=== PATIENT | male | born 1980 | race Caucasian/White ===

== ENCOUNTER 2020-12-10 09:17 | Emergency (ER) | payer BC ==
[2020-12-10] MEDS ORDERED: Sodium Chloride 0.9% 1000 ML 1,000 ML IV STA (09:25)
[2020-12-10] MEDS ORDERED: Zofran 4 MG/2 ML VIAL IV ONE (09:25)
[2020-12-10] MEDS ORDERED: MORPHINE SULFATE 4 MG INJ IV ONE ×2 (09:25→11:23)
[2020-12-10] MEDS ORDERED: TORAdol 30 mg Injection IV ONE (09:25)
[2020-12-10] MEDS ORDERED: TORAdol 30 mg Injection ONE (09:27)
[2020-12-10] MEDS ORDERED: Zofran 4 MG/2 ML VIAL ONE (09:27)
[2020-12-10] MEDS ORDERED: Sodium Chloride 0.9% 1000 ML 1,000 ML ONE (09:28)
[2020-12-10] MEDS ORDERED: MORPHINE SULFATE 4 MG INJ ONE ×2 (09:28→11:23)
[2020-12-10] MEDS ORDERED: Flomax 0.4 MG PO STA (09:29)
[2020-12-10 09:40] LABS: Absolute Neutrophil Ct (ANC) 8.28 (1.4-6.9); BASOPHIL % 0.3 % (0.0-0.4); Basophil (Absolute #) 0.03 (0-0.4); Eosinophil % 0.8 % (0.00-5.0); Eosinophil (Absolute #) 0.09 (0-0.5); Hematocrit 40.8 % (42-50); Hemoglobin 13.5 gm/dl (12.5-18.0); Lymphocyte (Absolute #) 2.39 (1.0-4.6); Lymphocytes % 20.9 % (24.0-44.0); Mean Cell Volume 92.9 fl (78-100); Mean Corpuscular Hemoglobin 30.8 pg (26-32); Mean Corpuscular Hgb Concent. 33.1 g/dl (32-36); Mean Platelet Volume 9.8 fl (7.5-11.0); Monocyte (Absolute #) 0.65 (0.0-1.3); Monocytes % 5.7 % (0.0-12.0); Neutrophil % 72.3 % (36.0-66.0); Platelet Count 276 K/mm3 (150-450); Red Blood Count 4.39 M/mm3 (4.1-5.6); Red Cell Distribution Width 13.3 % (11.5-14.0); White Blood Count 11.4 K/mm3 (4.0-10.5)
[2020-12-10] MEDS ORDERED: Flomax 0.4 MG ONE (09:40)
[2020-12-10 09:55] LABS: ALBUMIN 4.6 g/dL (3.5-5.0); ALKALINE PHOSPHATASE 72 U/L (38-126); ANION GAP 16.3 MEQ/L (5-15); BLOOD UREA NITROGEN 16 mg/dL (9-20); CHLORIDE 104 mmol/L (98-107); Calcium 9.3 mg/dL (8.4-10.2); Carbon Dioxide 23 mmol/L (22-30); Creatinine 1 1.03 mg/dL (0.66-1.25); EST GLOMERULAR FILTRATION RATE > 60.0 ML/MIN; Glucose 145 mg/dL (74-106); LIPASE 75 U/L (23-300); Potassium 3.9 mmol/L (3.5-5.1); SGOT/AST 38 U/L (17-59); SGPT/ALT 32 U/L (0-50); SODIUM 140 mmol/L (137-145); Total Protein 7.3 g/dL (6.3-8.2)
[2020-12-10 11:27] LABS: Appearance CLEAR (CLEAR); Bilirubin NEGATIVE (NEGATIVE); Blood MODERATE Ery/ul (0-5); Glucose NEGATIVE (NEGATIVE); Ketones NEGATIVE (NEGATIVE); Leukocyte Esterase NEGATIVE (NEGATIVE); Mucus SLIGHT /HPF (NEGATIVE); Nitrite NEGATIVE (NEGATIVE); Protein,Urine Dip NEGATIVE (Negative); RBC 0-2 /HPF (0-2); Specific Gravity 1.015 (1.005-1.025); Urobilinogen NEGATIVE mg/dL (0-1); WBC 0-2 /HPF (0-5)
--- NOTE | 2020-12-10 11:47 | ERPHSYRPT ---
- History of Present Illness Time Seen by Provider: 12/10/20 09:25 Historian: patient Exam Limitations: no limitations Patient Subjective Stated Complaint: Right sided flank pain Triage Nursing Assessment: Patient ambulated back to ED. Patient unable to sit or lie. Patient complains of right lower flank pain that started at 0530 this am. Patient states pain is 10/10 constant sharp pain. Patient states he is having a hard time urinating. Patient has hx of kidney stones. Physician History: 40-year-old male with a history of kidney stones presented in the ER with sudden onset right flank pain around 5:30 AM today, constant, severe sharp radiating to left groin, aggravated with activity, palpation and is unable to find any comfortable position. Denies associated hematuria, vomiting but does have some nausea. No fever or chills reported. Timing/Duration: today, constant, sudden, worse Activities at Onset: rest, sleep Quality: sharpness Abdominal Pain Onset Location: flank Pain Radiation: groin Severity of Pain-Max: severe Severity of Pain-Current: severe Modifying Factors: Worsens With: movement, palpation, position Associated Symptoms: nausea Previous symptoms: same symptoms as today Allergies/Adverse Reactions: No Known Drug Allergies Allergy (Verified 12/10/20 09:20) Hx Tetanus, Diphtheria Vaccination/Date Given: Yes Hx Influenza Vaccination/Date Given: No Hx Pneumococcal Vaccination/Date Given: No Immunizations Up to Date: Yes Travel Risk - International Travel Have you traveled outside of the country in past 3 weeks: No - Coronavirus Screening Are you exhibiting any of the following symptoms?: No Close contact with a COVID-19 positive Pt in past 14-21 Days: No - Vaccine Status Have you recieved a Covid-19 vaccination: Yes Forming Acid Dumper: Moderna - Vaccination Dates Date of 2cond Vaccination (if applicable): Apr 2020 - Review of Systems Constitutional: No Symptoms Eyes: No Symptoms Ears, Nose, & Throat: No Symptoms Respiratory: No Symptoms Cardiac: No Symptoms Abdominal/Gastrointestinal: Abdominal Pain, Nausea Genitourinary Symptoms: Flank Pain Musculoskeletal: No Symptoms Skin: No Symptoms Neurological: No Symptoms Psychological: No Symptoms Hematologic/Lymphatic: No Symptoms Immunological/Allergic: No Symptoms - Past Medical History Pertinent Past Medical History: Yes Neurological History: No Pertinent History ENT History: No Pertinent History Cardiac History: No Pertinent History Respiratory History: No Pertinent History Endocrine Medical History: No Pertinent History Musculoskeletal History: No Pertinent History GI Medical History: No Pertinent History History: Other Psycho-Social History: No Pertinent History Male Reproductive Disorders: No Pertinent History Other Medical History: seasonal allergies - Past Surgical History Past Surgical History: No - Social History Smoking Status: Never smoker Exposure to second hand smoke: No Drug Use: none Patient Lives Alone: No Significant Family History: no pertinent family hx - Nursing Vital Signs Nursing Vital Signs: Initial Vital Signs Temperature 97.9 F 12/10/20 09:23 Pulse Rate 71 12/10/20 09:23 Respiratory Rate 18 12/10/20 09:23 Blood Pressure 143/92 12/10/20 09:23 O2 Sat by Pulse Oximetry 96 12/10/20 09:23 Pain Scale Pain Intensity 8 - Physical Exam General Appearance: no apparent distress, alert Eye Exam: PERRL/EOMI, eyes nml inspection Ears, Nose, Throat Exam: normal ENT inspection, pharynx normal Neck Exam: normal inspection, supple, full range of motion Respiratory Exam: normal breath sounds, lungs clear Cardiovascular Exam: regular rate/rhythm, normal heart sounds Gastrointestinal/Abdomen Exam: soft, normal bowel sounds, tenderness (Right flank/right lower quadrant with positive CVA tenderness on the right.) Male Genitalia Exam: normal genitalia Back Exam: normal inspection, normal range of motion, CVA tenderness Extremity Exam: normal inspection, normal range of motion, pelvis stable Neurologic Exam: alert, oriented x 3, cooperative Skin Exam: normal color SpO2 Interpretation: normal SpO2: 96 O2 Delivery: Room Air Ordered Tests: Active Orders 24 hr Category Date Time Status IV Insertion STAT Care 12/10/20 09:25 Active NPO (ED) STAT Care 12/10/20 09:25 Active ABDOMEN AND PELVIS W/0 CONTRAS [CT] Stat Exams 12/10/20 09:28 Taken CBC W DIFF Stat Lab 12/10/20 09:35 Completed CMP Stat Lab 12/10/20 09:35 Completed LIPASE Stat Lab 12/10/20 09:35 Completed UA W/RFX UR CULTURE Stat Lab 12/10/20 11:04 Completed Medication Summary Discontinued Medications Generic Name Dose Route Start Last Admin Trade Name Freq PRN Reason Stop Dose Admin Sodium Chloride 1,000 mls @ 999 mls/hr 12/10/20 09:25 12/10/20 10:47 Sodium Chloride 0.9% 1000 Ml IV 12/10/20 10:25 Infused .Q1H1M STA Infusion Sodium Chloride Confirm 12/10/20 09:28 Sodium Chloride 0.9% 1000 Ml Administered 12/10/20 09:29 Dose 1,000 mls @ ud .ROUTE .STK-MED ONE Ketorolac Tromethamine Confirm 12/10/20 09:27 Toradol 30 Mg Injection Administered 12/10/20 09:28 Dose 30 mg .ROUTE .STK-MED ONE Ketorolac Tromethamine 30 mg 12/10/20 09:25 12/10/20 09:39 Toradol 30 Mg Injection IV 12/10/20 09:26 30 mg STAT ONE Administration Morphine Sulfate 4 mg 12/10/20 09:25 12/10/20 09:40 Morphine Sulfate 4 Mg Inj IV 12/10/20 09:26 4 mg STAT ONE Administration Morphine Sulfate Confirm 12/10/20 09:28 Morphine Sulfate 4 Mg Inj Administered 12/10/20 09:29 Dose 4 mg .ROUTE .STK-MED ONE Morphine Sulfate 4 mg 12/10/20 11:23 12/10/20 11:25 Morphine Sulfate 4 Mg Inj IV 12/10/20 11:24 4 mg STAT ONE Administration Morphine Sulfate Confirm 12/10/20 11:23 Morphine Sulfate 4 Mg Inj Administered 12/10/20 11:24 Dose 4 mg .ROUTE .STK-MED ONE Ondansetron HCl 4 mg 12/10/20 09:25 12/10/20 09:39 Zofran 4 Mg/2 Ml Vial IV 12/10/20 09:26 4 mg STAT ONE Administration Ondansetron HCl Confirm 12/10/20 09:27 Zofran 4 Mg/2 Ml Vial Administered 12/10/20 09:28 Dose 4 mg .ROUTE .STK-MED ONE Tamsulosin HCl 0.8 mg 12/10/20 09:29 12/10/20 09:42 Flomax 0.4 Mg PO 12/10/20 09:30 0.8 mg ONCE STA Administration Tamsulosin HCl Confirm 12/10/20 09:40 Flomax 0.4 Mg Administered 12/10/20 09:41 Dose 0.8 mg .ROUTE .STK-MED ONE Lab/Rad Data: Laboratory Result Diagrams 12/10/20 09:35 12/10/20 09:35 Laboratory Results 12/10/20 12/10/20 12/10/20 Range/Units 11:04 09:35 09:35 WBC 11.4 H (4.0-10.5) K/mm3 RBC 4.39 (4.1-5.6) M/mm3 Hgb 13.5 (12.5-18.0) gm/dl Hct 40.8 L (42-50) % MCV 92.9 (78-100) fl MCH 30.8 (26-32) pg MCHC 33.1 (32-36) g/dl RDW 13.3 (11.5-14.0) % Plt Count 276 (150-450) K/mm3 MPV 9.8 (7.5-11.0) fl Gran % 72.3 H (36.0-66.0) % Eos # (Auto) 0.09 (0-0.5) Absolute Lymphs (auto) 2.39 (1.0-4.6) Absolute Monos (auto) 0.65 (0.0-1.3) Lymphocytes % 20.9 L (24.0-44.0) % Monocytes % 5.7 (0.0-12.0) % Eosinophils % 0.8 (0.00-5.0) % Basophils % 0.3 (0.0-0.4) % Absolute Granulocytes 8.28 H (1.4-6.9) Basophils # 0.03 (0-0.4) Sodium 140 (137-145) mmol/L Potassium 3.9 (3.5-5.1) mmol/L Chloride 104 (98-107) mmol/L Carbon Dioxide 23 (22-30) mmol/L Anion Gap 16.3 H (5-15) MEQ/L BUN 16 (9-20) mg/dL Creatinine 1.03 (0.66-1.25) mg/dL Estimated GFR > 60.0 ML/MIN Glucose 145 H (74-106) mg/dL Calcium 9.3 (8.4-10.2) mg/dL Total Bilirubin 0.80 (0.2-1.3) mg/dL AST 38 (17-59) U/L ALT 32 (0-50) U/L Alkaline Phosphatase 72 (38-126) U/L Serum Total Protein 7.3 (6.3-8.2) g/dL Albumin 4.6 (3.5-5.0) g/dL Lipase 75 (23-300) U/L Urine Color YELLOW (YELLOW) Urine Appearance CLEAR (CLEAR) Urine pH 5.0 (5-6) Ur Specific [place] 1.015 (1.005-1.025) Urine Protein NEGATIVE (Negative) Urine Ketones NEGATIVE (NEGATIVE) Urine Blood MODERATE (0-5) Adalid/ul Urine Nitrite NEGATIVE (NEGATIVE) Urine Bilirubin NEGATIVE (NEGATIVE) Urine Urobilinogen NEGATIVE (0-1) mg/dL Ur Leukocyte Esterase NEGATIVE (NEGATIVE) Urine WBC (Auto) 0-2 (0-5) /HPF Urine RBC (Auto) 0-2 (0-2) /HPF U Epithel Cells (Auto) NONE (FEW) /HPF Urine Bacteria (Auto) NONE (NEGATIVE) /HPF Urine Mucus (Auto) SLIGHT (NEGATIVE) /HPF Urine Culture Reflexed NO (NO) Urine Glucose NEGATIVE (NEGATIVE) mg/dL - Progress Progress: improved Progress Note: 12/10/20 11:45 40-year-old is evaluated for right flank pain. He is given fluid bolus along with pain medications and Flomax, on reevaluation feeling better. Has white count of 11, grossly unremarkable chemistries and stable renal functions with no UTI. CT showed bilateral nonobstructing kidney stones and 2-3 mm right ureteral stone without any obstruction. I believe patient would be able to pass the stone on his own, will give him pain medication, Flomax and recommended ou tpatient urology follow-up for further evaluation. Discussed signs symptoms of worsening needing return to ER which he seems understanding. Counseled pt/family regarding: lab results, diagnosis, rad results - Departure Departure Disposition: Home Clinical Impression: Ureterolithiasis Condition: Stable Critical Care Time: No Referrals: CARROLL HIGGINBOTHAM FNP [Primary Care Provider] - Follow Up with PCP/3 days NESTOR JUAREZ [COURTESY STAFF] - (Call in 2 days for reevaluation) Instructions: Kidney Stones (DC), Flank Pain Additional Instructions: Take pain medications as needed. Drink plenty of fluids. Continue with Flomax. Follow-up with primary care and urology for reevaluation. Return to ER for intractable pain, difficulty urination, intractable vomiting, persistent fever chills etc. Prescriptions: Hydrocodone/Acetaminophen [Hydrocodone-Acetamin 7.5-325] 1 each PO Q6HPRN PRN 3 Days #12 tablet MDD 4 PRN Reason: Pain Tamsulosin HCl 0.4 mg [Flomax 0.4 MG] 0.4 mg PO DAILY #30 cap
[2020-12-10 12:05] VITALS: BP 159/98; PULSE 59; O2SAT 98
--- NOTE | 2020-12-10 22:08 | XRAY ---
Indication: Right inguinal/flank pain. History kidney stones. Multiple contiguous axial images obtained through the abdomen and pelvis without contrast using renal stone protocol. Comparison: May 16, 2012. Lung bases are clear with incidental inferior right middle lobe calcified granuloma. Heart is not enlarged. New 2-3 mm right UVJ calculus with proximal ureter minimally distended and mild hydronephrosis consistent with partial obstructive uropathy. Additional bilateral renal micro-calculi, largest on left measuring 677 mm. Noncontrasted stomach and bowel loops are nonobstructed. Normal appendix. No free fluid/air. Remaining liver, gallbladder, pancreas, spleen, adrenal glands, kidneys, ureters, bladder, and aorta are unremarkable for noncontrast exam. Osseous structures intact. Impression: 1. New 2-3 mm right UVJ calculus producing partial obstruction as detailed. Additional bilateral renal micro-calculi. 2. Right middle lobe calcified granuloma. 3. Remaining CT abdomen/pelvis without contrast exam is negative. Comment: Preliminary interpretation made by [facility]. No critical discrepancy.
== END 2020-12-10 12:07 | disposition home or self-care (01) ==
LOC: ED 09:17
DX: N20.1 Calculus of ureter (principal); R11.0 Nausea; R10.9 Unspecified abdominal pain
CPT/HCPCS: 36000; 36415; 74176; 80053; 81001; 83690; 85025; 96360; 96374; 96375; 96376; 99284; J1885; J2270; J2405; A9270-GY

== ENCOUNTER 2024-11-30 15:48 | Emergency (ER) | payer BC ==
[2024-11-30 16:01] VITALS: TEMP 97.5; O2SAT 96
--- NOTE | 2024-11-30 16:19 | ERPHSYRPT ---
- History of Present Illness Time Seen by Provider: 11/30/24 16:07 Source: patient Exam Limitations: no limitations Patient Subjective Stated Complaint: pt has right flank pain Triage Nursing Assessment: Pt brought to the ER by his , hypertensive, rates pain as 6/10, pulses normal, skin n/w/d, hx of kidney stones, denies chest pain, no difficulty breathing, doesn't appear to be in any distress Physician History: Patient is here with right sided flank pain, 6 out of 10, started just prior to arrival. Patient states he was walking out of work to his car. 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 No falls or trauma. Patient does have a history of kidney stones. States he has not had any since 2020. Patient is taking PO well. Same number of urinations and defecations. The patient has no signs of altered mental status, nuchal rigidity, signs of meningitis. The patient is up-to-date on all vaccinations. Allergies/Adverse Reactions: No Known Drug Allergies Allergy (Verified 11/30/24 16:02) Hx Tetanus, Diphtheria Vaccination/Date Given: Yes Hx Influenza Vaccination/Date Given: No Hx Pneumococcal Vaccination/Date Given: No Travel Risk - International Travel Have you traveled outside of the country in past 3 weeks: No - Emerging Infectious Disease Are you exhibiting symptoms associated with any current EIDs: No - Past Medical History Pertinent Past Medical History: Yes Neurological History: No Pertinent History ENT History: No Pertinent History Cardiac History: No Pertinent History Respiratory History: No Pertinent History Endocrine Medical History: No Pertinent History Musculoskeletal History: Other GI Medical History: No Pertinent History History: Other Psycho-Social History: No Pertinent History Male Reproductive Disorders: No Pertinent History Other Medical History: L RC repair - Past Surgical History Past Surgical History: Yes Musculoskeletal: Orthopedic Surgery Other Surgical History: lt shoulder rotator cuff Significant Family History: no pertinent family hx - Social History Smoking Status: Never smoker Exposure to second hand smoke: No Drug Use: none - Social Determinants of Health Will the patient participate in the screening: Yes Do you worry about a steady place to live?: No Do you have any problems with any of the following?: No known problems In the past 12 months,have you had to go without utilities?: No Transportation Issues: No Has anyone in your support network made you feel unsafe?: No Have you or anyone in your house had to go w/o enough food: No - Nursing Vital Signs Nursing Vital Signs: Initial Vital Signs Temperature 97.5 F 11/30/24 15:55 Pulse Rate 74 11/30/24 15:55 Blood Pressure 175/83 11/30/24 15:55 O2 Sat by Pulse Oximetry 96 11/30/24 15:55 Pain Scale Pain Intensity 3 - Physical Exam SpO2 Interpretation: normal SpO2: 96 Comments: 11/30/24 16:18 Review of Systems Constitutional: Negative for fever. HENT: Negative for congestion. Respiratory: Negative for shortness of breath. Cardiovascular: Negative for chest pain. Gastrointestinal: Negative for abdominal pain. Genitourinary: Negative for dysuria. Musculoskeletal: Right flank pain Skin: Negative for rash. Neurological: Negative for headaches. Psychiatric/Behavioral: Negative for behavioral problems. All other systems reviewed and are negative. Physical Exam Vitals signs and nursing note reviewed. Constitutional: Appearance: Patient is well-developed. HENT: Head: Normocephalic and atraumatic. Eyes: Conjunctiva/sclera: Conjunctivae normal. Neck: Musculoskeletal: Normal range of motion. Trachea: No tracheal deviation. Cardiovascular: Rate and Rhythm: Normal rate. Heart sounds normal. Pulmonary: Effort: Pulmonary effort is normal. No respiratory distress. Abdominal: Palpations: Abdomen is soft. Musculoskeletal: General: No deformity. Right flank tenderness Skin: General: Skin is warm and dry. Neurological/ Psychiatric: Mental Status: Mental status, behavior, interaction with environment is appropriate for patient's age and condition Ordered Tests: Active Orders 24 hr Category Date Time Status IV Insertion STAT Care 11/30/24 16:13 Active ABDOMEN AND PELVIS W/0 CONTRAS [CT] Stat Exams 11/30/24 16:22 Completed CBC W DIFF Stat Lab 11/30/24 16:30 Completed CMP Stat Lab 11/30/24 16:30 Completed CULTURE,URINE Stat Lab 11/30/24 18:00 Received LIPASE Stat Lab 11/30/24 16:30 Completed UA W/RFX UR CULTURE Stat Lab 11/30/24 18:00 Completed Medication Summary Discontinued Medications Generic Name Dose Route Start Last Admin Trade Name Freq PRN Reason Stop Dose Admin Hydromorphone HCl 1 mg 11/30/24 16:13 11/30/24 16:43 Hydromorphone 1 Mg/1ml Inj IV 11/30/24 16:14 1 mg STAT ONE Administration Hydromorphone HCl Confirm 11/30/24 16:41 Hydromorphone 1 Mg/1ml Inj Administered 11/30/24 16:42 Dose 1 mg .ROUTE .STK-MED ONE Sodium Chloride 1,000 mls @ 999 mls/hr 11/30/24 16:13 11/30/24 17:51 Sodium Chloride 0.9% 1000 Ml IV 11/30/24 17:13 Infused .Q1H1M STA Infusion Sodium Chloride Confirm 11/30/24 16:41 Sodium Chloride 0.9% 1000 Ml Administered 11/30/24 16:42 Dose 1,000 mls @ ud .ROUTE .STK-MED ONE Ketorolac Tromethamine 30 mg 11/30/24 16:13 11/30/24 16:43 Ketorolac Tromethamine 30 Mg/Ml Inj IV 11/30/24 16:14 30 mg STAT ONE Administration Ketorolac Tromethamine Confirm 11/30/24 16:41 Ketorolac Tromethamine 30 Mg/Ml Inj Administered 11/30/24 16:42 Dose 30 mg .ROUTE .STK-MED ONE Ondansetron HCl 8 mg 11/30/24 16:13 11/30/24 16:43 Ondansetron Hcl 4 Mg/2 Ml Vial IV 11/30/24 16:14 8 mg STAT ONE Administration Ondansetron HCl Confirm 11/30/24 16:41 Ondansetron Hcl 4 Mg/2 Ml Vial Administered 11/30/24 16:42 Dose 4 mg .ROUTE .STK-MED ONE Ondansetron HCl Confirm 11/30/24 16:44 Ondansetron Hcl 4 Mg/2 Ml Vial Administered 11/30/24 16:45 Dose 4 mg .ROUTE .STK-MED ONE Lab/Rad Data: Laboratory Result Diagrams 11/30/24 16:30 11/30/24 16:30 Laboratory Results 11/30/24 11/30/24 11/30/24 Range/Units 18:00 16:30 16:30 WBC 11.0 H (4.23-9.07) x10^3/uL RBC 4.60 L (4.63-6.08) x10^6/uL Hgb 14.2 (13.7-17.5) g/dL Hct 41.5 (40.1-51.0) % MCV 90.2 (79.0-92.2) fL MCH 30.9 (25.7-32.2) pg MCHC 34.2 (32.3-36.5) g/dL RDW 12.4 (11.6-14.4) % Plt Count 261 (163-337) x10^3/uL MPV 9.4 (9.4-12.4) fL Gran % 71.3 H (34.0-67.9) % Immature Gran % (Auto) 0.4 (0.001-0.429) % Nucleat RBC Rel Count 0.0 (0.00-0.2) % Eos # (Auto) 0.07 (0.04-0.54) x10^3/uL Immature Gran # (Auto) 0.04 H (0.001-0.031) x10^3u/L Absolute Lymphs (auto) 2.16 (1.32-3.57) x10^3/uL Absolute Monos (auto) 0.82 (0.30-0.82) x10^3/uL Absolute Nucleated RBC 0.00 (0.00-0.012) x10^3u/L Lymphocytes % 19.7 L (21.8-53.1) % Monocytes % 7.5 (5.3-12.2) % Eosinophils % 0.6 L (0.8-7.0) % Basophils % 0.5 (0.2-1.2) % Absolute Granulocytes 7.83 H (1.78-5.38) x10^3/uL Basophils # 0.05 (0.01-0.08) x10^3/uL Sodium 138 (135-145) mmol/L Potassium 4.1 (3.5-5.1) mmol/L Chloride 104 (98-107) mmol/L Carbon Dioxide 22 (22-30) mmol/L Anion Gap 15.3 H (5-15) MEQ/L BUN 19 (9-20) mg/dL Creatinine 0.88 (0.66-1.25) mg/dL Estimated GFR 108.1 ML/MIN Glucose 155 H (74-106) mg/dL Calcium 9.1 (8.4-10.2) mg/dL Total Bilirubin 0.60 (0.2-1.3) mg/dL AST 42 (17-59) U/L ALT 44 (0-50) U/L Alkaline Phosphatase 71 (38-126) U/L Serum Total Protein 7.4 (6.3-8.2) g/dL Albumin 4.7 (3.5-5.0) g/dL Lipase 69 (23-300) U/L Urine Color Yellow (Yellow) Urine Appearance Clear (Clear) Urine pH 5.0 (4.6-8.0) Ur Specific [place] 1.020 (1.005-1.030) Urine Protein Trace A (Negative) Urine Glucose (UA) Negative (Negative) mg/dL Urine Ketones Negative (Negative) Urine Blood Moderate A (Negative) Urine Nitrite Negative (Negative) Urine Bilirubin Negative (Negative) Urine Urobilinogen 0.2 (0.2) mg/dL Ur Leukocyte Esterase Negative (Negative) U Hyaline Cast (Auto) NONE SEEN (0-2) /LPF Urine Microscopic RBC 11-20 A (0-5) /HPF Urine Microscopic WBC 0-2 (0-5) /HPF Ur Epithelial Cells None Seen (None Seen) /HPF Urine Bacteria None Seen (None Seen) /HPF Urine Culture Reflexed YES (NO) - Progress Progress: improved Progress Note: 11/30/24 16:19 Differential diagnosis includes kidney stone, compression fracture, infection, UTI, triple AAA - basic labs including: CBC, lipase, CMP, UA - insert IV for symptom management - consider imaging: CT ab/pelvis or U/S 11/30/24 18:08 Patient is feeling much improved with medication here in the emergency department. Patient was able to pee for us. Describing pain as 2-10. CT scan does show right sided kidney stone.It is only partially obstructing. Creatinine is stable. Plan for continued hydration, make sure patient does not have a UTI. Likely home today with close outpatient follow-up to urology. 11/30/24 18:33 Patient's pain continues to be improved.UA shows no signs of a UTI. Patient needs close follow-up with urology. I did give patient strict return precautions. Will need to return here sooner for any new or changing symptoms. Counseled pt/family regarding: lab results, diagnosis, need for follow-up, rad results - Departure Departure Disposition: Home Clinical Impression: Kidney stone on right side Condition: Stable Critical Care Time: No Referrals: GASTON RODRIGUEZ DO [Primary Care Provider, [facility]] - Follow up/PCP as directed Instructions: Kidney Stones (DC) Prescriptions: Ondansetron ODT 4 MG [Zofran Odt 4 mg] 4 mg PO Q6H PRN PRN #10 tablet PRN Reason: Vomiting Ketorolac Trometh 10 mg Tab [TORAdol 10 MG TABLET] 10 mg PO BIDPRN PRN 5 Days #10 tablet NS PRN Reason: Pain
[2024-11-30] MEDS ORDERED: Zofran 4 MG/2 ML VIAL ONE ×2 (16:41→16:44)
[2024-11-30] MEDS ORDERED: Hydromorphone 1 mg/ml Injection ONE (16:41)
[2024-11-30] MEDS ORDERED: TORAdol 30 mg Injection ONE (16:41)
[2024-11-30] MEDS: Zofran 4 MG/2 ML VIAL IV ONE (16:43)
[2024-11-30] MEDS: TORAdol 30 mg Injection IV ONE (16:43)
[2024-11-30] MEDS: Hydromorphone 1 mg/ml Injection IV ONE (16:43)
[2024-11-30 16:44] LABS: BASOPHIL % 0.5 % (0.2-1.2); Basophil (Absolute #) 0.05 x10^3/uL (0.01-0.08); Eosinophil (Absolute #) 0.07 x10^3/uL (0.04-0.54); Hematocrit 41.5 % (40.1-51.0); Hemoglobin 14.2 g/dL (13.7-17.5); IMMATURE GRAN # 0.04 x10^3u/L (0.001-0.031); IMMATURE GRAN % 0.4 % (0.001-0.429); Lymphocyte (Absolute #) 2.16 x10^3/uL (1.32-3.57); Mean Corpuscular Hemoglobin 30.9 pg (25.7-32.2); Mean Corpuscular Hgb Concent. 34.2 g/dL (32.3-36.5); Monocyte (Absolute #) 0.82 x10^3/uL (0.30-0.82); NUCLEATED RBC # 0.00 x10^3u/L (0.00-0.012); NUCLEATED RBC % 0.0 % (0.00-0.2); Platelet Count 261 x10^3/uL (163-337); Red Blood Count 4.60 x10^6/uL (4.63-6.08); White Blood Count 11.0 x10^3/uL (4.23-9.07)
[2024-11-30 17:00] LABS: Calcium 9.1 mg/dL (8.4-10.2); Carbon Dioxide 22.0 mmol/L (22-30); Creatinine 1 0.88 mg/dL (0.66-1.25); EST GLOMERULAR FILTRATION RATE 108.1 ML/MIN; Glucose 155.0 mg/dL (74-106); Potassium 4.1 mmol/L (3.5-5.1); SGOT/AST 42.0 U/L (17-59); SGPT/ALT 44.0 U/L (0-50); Total Protein 7.4 g/dL (6.3-8.2)
--- NOTE | 2024-11-30 17:00 | XRAY ---
Indication: Right flank pain. Multiple contiguous axial images obtained through the abdomen and pelvis without contrast using renal stone protocol. Comparison: December 10, 2020 Lung bases clear again with incidental tiny right middle lobe calcified granuloma. Heart not enlarged. New 4-5 mm right mid ureter calculus, approximately L4 level. No hydroureter but minimal hydronephrosis favors partial obstructive uropathy. Again a few bilateral renal calculi increased in size and number, largest left lower pole measure 1.2 x 0.9 x 1.2 cm. Noncontrasted stomach and bowel loops appear nonobstructed. Mild diffuse fatty liver. No free fluid/air. Remaining liver, gallbladder, pancreas, spleen, adrenal glands, kidneys, ureters, bladder, and aorta are unremarkable for noncontrast exam. Osseous structures intact. Impression: 1. New 4-5 mm right mid ureter calculus producing partial obstruction as detailed. Again additional bilateral renal calculi. 2. Incidental fatty liver and old granulomatous disease.
[2024-11-30 18:15] LABS: Glucose, Urine Negative (Negative); Protein,Urine Dip Trace (Negative); WBC 0-2 /HPF (0-5)
[2024-11-30 18:35] VITALS: BP 159/91; PULSE 57
[2024-11-30] MEDS ORDERED: ZOFRAN ODT 4 MG ONE (18:46)
[2024-11-30] MEDS: ZOFRAN ODT 4 MG PO ONE (18:47)
== END 2024-11-30 18:50 | disposition home or self-care (01) ==
LOC: ED 15:48
DX: N20.0 Calculus of kidney (principal); R10.9 Unspecified abdominal pain; Z79.899 Other long term (current) drug therapy